=== PATIENT | male | born 1995 | race Two or more races ===

== ENCOUNTER 2024-02-21 02:53 | Emergency (ER) | payer MEDICAID, SELFPAY ==
[2024-02-21] VITALS (7 sets, daily range): BP systolic 109–128; BP diastolic 66–83; PULSE 58–89; RESP 16–23; TEMP 36.5–37.1; O2SAT 96–99; BMI 28.1
--- NOTE | 2024-02-21 03:09 | PD.EDRME ---
Rapid Medical Screening Exam [facility] Arrival date/time: 02/21/24 02:53 29M with history of cholecysitis (managed with ABX), gastritis, and Valley Fever presents to ED with 1 day of burning epigastric pain and N/V. Chief Complaint: Abdominal Pain Vital signs: Vital Signs Temperature 97.7 F 02/21/24 03:07 Pulse Rate 58 L 02/21/24 03:07 Respiratory Rate 19 02/21/24 03:07 Blood Pressure 127/83 02/21/24 03:07 Pulse Oximetry (%) 99 02/21/24 03:07 Oxygen Delivery Method Room Air 02/21/24 03:07
[2024-02-21 03:34] LABS: Basophils # (Auto) 0.1 Thou/mm3 (0.0-0.2); Basophils % (Auto) 1 % (0-2.5); Eosinophils # (Auto) 0.1 Thou/mm3 (0.0-0.5); Eosinophils % (Auto) 1 % (0-10); Hematocrit 44.7 % (41.0-53.0); Hemoglobin 15.4 g/dL (13.5-16.0); Immature Granulocytes % (Auto) 0 % (0-0); Immature Granulocytes Auto 0.02 Thou/mm3 (0.00-0.00); Lymphocytes # (Auto) 2.5 Thou/mm3 (1.0-4.8); Lymphocytes % (Auto) 19 % (10-50); Mean Corpuscular HGB Conc 34.5 g/dl (31.0-37.0); Mean Corpuscular Hemoglobin 28.2 pg (25.0-35.0); Mean Corpuscular Volume 82 fL (80-100); Monocytes # (Auto) 0.6 Thou/mm3 (0.0-0.8); Monocytes % (Auto) 4 % (0-12); Neutrophils # (Auto) 9.7 Thou/mm3 (1.8-7.7); Neutrophils % (Auto) 75 % (37-80); Nucleated Red Blood Cell % 0 /100 WBC (0); Platelet Count 230 Thou/mm3 (140-440); RDW Standard Deviation 38.7 fL (35.1-43.9); Red Blood Count 5.47 Miln/mm3 (4.50-5.90); White Blood Count 12.9 Thou/mm3 (3.8-10.6)
[2024-02-21 04:00] LABS: Alanine Aminotransferase 21 U/L (10-49); Albumin, Serum 4.8 gm/dL (3.5-5.0); Albumin/Globulin Ratio 1.2 (1.2-2.2); Alcohol, Blood Medical < 3.0 mg/dL (0-10.0); Alkaline Phosphatase 133 U/L (46-116); Anion Gap 8 (7-16); Aspartate Amino Transferase 19 U/L (0-34); BUN/Creatinine Ratio 17 Ratio (12-20); Bilirubin,Total 0.5 mg/dL (0.3-1.2); Blood Urea Nitrogen 17 mg/dL (9-23); Calcium 9.5 mg/dL (8.3-10.6); Calcium (Corrected) 9.5 mg/dL (8.5-10.1); Carbon Dioxide 24.1 mMol/L (20.0-31.0); Chloride 103 mMol/L (98-107); Estimated Creatinine Clearance 116.1 mL/min (>60); Glucose 139 mg/dL (74-106); Lipase 36 U/L (12-53); Osmolality,Calculated 273 (275-295); Potassium 3.2 mMol/L (3.4-5.1); Sodium 135 mMol/L (136-145); Total Protein 8.8 gm/dL (5.7-8.2); eGFR > 60 See Note
[2024-02-21] MEDS: ONDANSETRON ODT 4 MG TABRAP PO (04:03)
[2024-02-21] MEDS: FAMOTIDINE 20 MG TABLET 40 MG PO (04:03)
[2024-02-21] MEDS: LIDOCAINE VISCOUS 2% 15 ML UDC PO (04:03)
[2024-02-21] MEDS: MG HYD/AL HYD/SIME (Maalox Reg) SUSP 30 ML UDC PO (04:03)
[2024-02-21 07:28] LABS: Amphetamine/Methamp Scrn,U Negative (Negative); Barbiturate Screen,Urine Negative (Negative); Benzodiazepines Screen,Urine Negative (Negative); Benzoylecgonine Screen, Ur Negative (Negative); Fentanyl Screen,Urine Negative (Negative); Opiate Screen,Urine Negative (Negative); THC Screen,Urine Negative (Negative)
--- NOTE | 2024-02-21 11:18 | XR_ITS ---
Examination: Abdomen sonogram, Limited Date and time of exam: February 21, 2024 1132 hrs. Indications: Onset right upper abdominal pain with vomiting beginning 12 hours ago Technique: Real-time archer scale transabdominal sonographic images of the upper abdomen obtained. Findings: Multiple gallstones, the largest 12 mm Gallbladder wall is thickened 1.6 cm with edema Common bile duct is enlarged 0.7 cm no definite stones Pancreatic head 2.6 cm Liver 17.1 cm smooth contour no focal liver lesions Normal hepatopedal portal venous flow Patent IVC Impression: Acute calculus cholecystitis Consider MRCP follow-up to assess the enlarged common bile duct and exclude common bile duct stones
--- NOTE | 2024-02-21 11:28 | EDNOTE_ITS ---
ED General RME/HPI General Chief complaint: Abdominal Pain Stated complaint: UPPER ABD PAIN RADIATING TO BACK Time Seen by Provider: 02/21/24 06:51 Arrival date/time: 02/21/24 02:53 CC: Epigastric pain with nausea vomiting HPI single episode last night, but has had it for several nights in a row in the past week and 1 episode last month. The patient has a prior history of cholecystitis was managed with antibiotics in June 2023. Patient states between June and last month there were no episodes and then tonight, after throwing up, the pain persisted whereas it would usually spontaneously resolved. Patient is awake alert oriented nontoxic-appearing not in any acute distress denies any chest pain shortness of breath or difficulty breathing. RME / HPI RME / HPI narrative: 02/21/24 02:53 29M with history of cholecysitis (managed with ABX), gastritis, and [place] Fever presents to ED with 1 day of burning epigastric pain and N/V. Related Data Previous Rx's ?Medication ?Instructions ?Recorded omeprazole 40 mg capsule,delayed 40 mg PO QDAY #30 caps 06/16/23 release ondansetron 4 mg disintegrating 4 mg PO Q8H #10 tabs 02/21/24 tablet pantoprazole 40 mg granules 40 mg PO QDAY #30 ea 02/21/24 delayed-release for susp in packet (Protonix) Allergies Allergy/AdvReac Type Severity Reaction Status Date / Time No Known Allergies Allergy Verified 02/21/24 02:55 Review of Systems Review of Systems Narrative Review of Systems: GEN: No fever, no chills, no weight loss EYES: No discharge, no visual changes, no pain HEENT: No ear pain, no congestion, no sore throat PULM: No shortness of breath, no cough, no congestion CV: No chest pain, no dyspnea on exertion, no palpitations GI: No nausea, no vomiting, no diarrhea, + pain, no constipation : No frequency, no urgency, no dysuria MUSC/SKEL: No joint pain, no back pain SKIN: No rash PSYCH: No hallucinations, no depression HEME/LYMPH: No easy bleeding or bruising tendencies NEURO: No weakness, no headache ED Exam Narrative Physical exam: [General: Obese not in any acute distress Head normocephalic HEENT: Within acceptable limits Neck is supple nontender Chest equal chest rise nontender to palpation Respiratory: Clear to auscultation no wheezes crackles or rubs CV: Rate rhythm is regular no murmurs rubs or clicks Abdomen is distended secondary to body habitus soft nontender no masses positive bowel sounds all 4 quadrants Back: No CVA tenderness no spinous process tenderness from cervical spine thoracic and lumbar spine Skin: Intact no petechiae rash induration ulceration or crepitus Extremities: Moving all extremity against resistance cap refill less than 2 seconds neurosensory intact Neuro: Awake alert oriented x3 Glascow coma 15 no focal deficits] Course Quality Measures none Orders Category Date Time Status US gall bladder Stat Exams 02/21/24 11:18 Completed Alcohol, Blood Medical Stat Lab 02/21/24 03:26 Completed CBC Stat Lab 02/21/24 03:26 Completed CMP [Comprehensive Metabolic Panel] Stat Lab 02/21/24 03:26 Completed Drug Screen,Urine Stat Lab 02/21/24 06:17 Completed Lipase Stat Lab 02/21/24 03:26 Completed Famotidine [Pepcid] Med 02/21/24 03:10 Discontinued 40 mg PO X1 ONE Lidocaine 2% Viscous [Xylocaine 2% Viscous] Med 02/21/24 03:10 Discontinued 15 ml PO X1 ONE Morphine Inj Med 02/21/24 03:08 Discontinued 5 mg IM X1 ONE Ondansetron Odt [Zofran Odt] Med 02/21/24 03:08 Discontinued 4 mg PO X1 ONE mg Hyd/Al Hyd/Leonel Susp [Maalox Susp] Med 02/21/24 03:10 Discontinued 30 ml PO X1 ONE Vital Signs Vital signs: Vital Signs Temperature 97.7 F 02/21/24 03:07 Pulse Rate 58 L 02/21/24 03:07 Respiratory Rate 19 02/21/24 03:07 Blood Pressure 127/83 02/21/24 03:07 Pulse Oximetry (%) 99 02/21/24 03:07 Oxygen Delivery Method Room Air 02/21/24 03:07 [facility] Patient data External records reviewed:: [facility] previous records Clinical information provided by:: patient Social determinants that could affect healthcare access:: none Patient has the following chronic illnesses:: Antibiotic manage cholecystitis in June 2023 How is presenting disease/condition affected by chronic disease/condition?: u neffected by Evaluation data The following diagnostics were reviewed and interpreted by me:: lab results and radiology exam(s) Lab and/or radiology exams considered but not ordered:: CBC shows leukocytosis of 12.9 no anemia thrombocytopenia CBC shows a sodium 135 potassium 3.2 chloride 103 bicarb of 24.1 BUN of 17 creatinine 1.0 glucose 139 Alk phos 133 Lipase of 36 UDS is negative EtOH less than 3. Ultrasound the gallbladder shows a calculus cholecystitis recommended an ERCP. Interpretation Summary: The patient has no significant transaminases or T. bili elevation. I think the patient is stable enough to discharge home to follow-up in the morning with ERCP I discussed the patient and he is in agreement with this plan the caveat is if he is a worsening of symptoms profoundly do not wait and come back in during the night. Medications Medications considered but not ordered:: None Medication administrations:: Medication Administration History Discontinued Medications Al Hydrox/Mg Hydrox/Simethicone (Mg Hyd/Al Hyd/Leonel (Maalox Reg) Susp 30 Ml Udc) 30 ml PO X1 ONE Stop: 02/21/24 03:11 Last Admin: 02/21/24 04:03 Dose: 30 ml Documented By: PUNEET Famotidine (Famotidine 20 Mg Tablet) 40 mg PO X1 ONE Stop: 02/21/24 03:11 Last Admin: 02/21/24 04:03 Dose: 40 mg Documented By: PUNEET Lidocaine HCl (Lidocaine Viscous 2% 15 Ml Udc) 15 ml PO X1 ONE Stop: 02/21/24 03:11 Last Admin: 02/21/24 04:03 Dose: 15 ml Documented By: PUNEET Morphine Sulfate (Morphine Sulf Inj 10 Mg/Ml Vial) 5 mg IM X1 ONE Stop: 02/21/24 03:09 Last Admin: 02/21/24 04:06 Dose: Not Given Documented By: PUNEET Non-Admin Reason: Discontinued Ondansetron HCl (Ondansetron Odt 4 Mg Tabrap) 4 mg PO X1 ONE; Protocol Stop: 02/21/24 03:09 Last Admin: 02/21/24 04:03 Dose: 4 mg Documented By: PUNEET None Consultations Consultation(s) initiated? (list below): No Diagnosis Differential Diagnosis ED Complaint MDM: Cholecystitis cholelithiasis choledocholithiasis Most likely diagnosis given after review of the tests above:: Abdominal pain Admission Indicated Admission indicated?: not indicated Explain why admission is indicated or not indicated:: Stable for close outpatient follow-up Admission Request Was there a request for admission?: No Disposition Plan Disposition Plan: Discharge Discharge Attestation Discharge Attestation: The patient and all family members were given an opportunity to ask questions and understood the discharge instructions. Discharge instructions specifically effects, indications for sooner follow up or return to the emergency department, and the expected course of current diagnosis. Patient condition: Stable Medical Decision Making Differential Diagnosis Differential Diagnosis: Cholecystitis cholelithiasis choledocholithiasis Lab Data 02/21/24 03:26 02/21/24 03:26 Labs: Lab Results 02/21/24 02/21/24 Range/Units 03:26 06:17 WBC 12.9 H (3.8-10.6) Thou/mm3 RBC 5.47 (4.50-5.90) Miln/mm3 Hgb 15.4 (13.5-16.0) g/dL Hct 44.7 (41.0-53.0) % MCV 82 (80-100) fL MCH 28.2 (25.0-35.0) pg MCHC 34.5 (31.0-37.0) g/dl RDW Std Deviation 38.7 (35.1-43.9) fL Plt Count 230 (140-440) Thou/mm3 Neut % (Auto) 75 (37-80) % Lymph % (Auto) 19 (10-50) % [place] % (Auto) 4 (0-12) % Eos % (Auto) 1 (0-10) % Baso % (Auto) 1 (0-2.5) % Neut # (Auto) 9.7 H (1.8-7.7) Thou/mm3 Lymph # (Auto) 2.5 (1.0-4.8) Thou/mm3 [place] # (Auto) 0.6 (0.0-0.8) Thou/mm3 Eos # (Auto) 0.1 (0.0-0.5) Thou/mm3 Baso # (Auto) 0.1 (0.0-0.2) Thou/mm3 Immature Gran # (Auto) 0.02 H (0.00-0.00) Thou/mm3 Absolute Nucleated RBC 0.00 (0.00-0.00) Thou/mm3 Immature Gran % 0 (0-0) % Nucleated RBC % 0 (0) /100 WBC Sodium 135 L (136-145) mMol/L Potassium 3.2 L (3.4-5.1) mMol/L Chloride 103 (98-107) mMol/L Carbon Dioxide 24.1 (20.0-31.0) mMol/L Anion Gap 8 (7-16) BUN 17 (9-23) mg/dL Creatinine 1.0 (0.6-1.3) mg/dL Estim Creat Clear Calc 116.1 (>60) mL/min eGFR > 60 (60 - ) See Note BUN/Creatinine Ratio 17 (12-20) Ratio Glucose 139 H (74-106) mg/dL Calculated Osmolality 273 L (275-295) Calcium 9.5 (8.3-10.6) mg/dL Corrected Calcium 9.5 (8.5-10.1) mg/dL Total Bilirubin 0.5 (0.3-1.2) mg/dL AST 19 (0-34) U/L ALT 21 (10-49) U/L Alkaline Phosphatase 133 H (46-116) U/L Total Protein 8.8 H (5.7-8.2) gm/dL Albumin 4.8 (3.5-5.0) gm/dL Globulin 4.0 H (2.3-3.5) gm/dL Albumin/Globulin Ratio 1.2 (1.2-2.2) Lipase 36 (12-53) U/L Urine Opiates Screen Negative (Negative) Urine Fentanyl Screen Negative (Negative) Ur Barbiturates Screen Negative (Negative) U Amphetamin/Meth Scrn Negative (Negative) U Benzodiazepines Scrn Negative (Negative) U Cocaine Metab Screen Negative (Negative) U Marijuana (THC) Screen Negative (Negative) Ethyl Alcohol < 3.0 (0-10.0) mg/dL Discharge Plan Plan Patient Disposition: HOME (Self Care) Patient condition on transfer: Stable Prescriptions/Referrals Prescriptions/Med Rec: New pantoprazole [Protonix] [address] for susp in packet 40 mg PO QDAY Qty: 30 0RF ondansetron 4 mg tablet,disintegrating 4 mg PO Q8H Qty: 10 0RF No Action omeprazole 40 mg capsule,delayed release(DR/EC) 40 mg PO QDAY Qty: 30 1RF Referrals: No Primary/Family,Physician [Primary Care Provider] - In 1 week Problem List Clinical Impression: Epigastric pain Patient/Caregiver Discharge Instructions Education Materials: ED Epigastric Pain (Uncertain Cause) Additional Instructions: Return tomorrow at 10:30 AM as you need an MRCP. Print Language: Croatian Stand Alone Forms: Nicole Award Info., Work/School Release, Patient Portal Info Letter PA/SUGAR HOUSE SUPERVISOR Supervising Physician PA/[employer]SE SUPERVISOR Supervising Physician: Robert Luna ENP
== END 2024-02-21 13:18 | disposition home or self-care (01) ==
PROVIDERS: Physician Assistant; Emergency Provider Emergency Medicine
DX: K80.10 Calculus of gallbladder with chronic cholecystitis without obstruction (principal)
CPT/HCPCS: 36415; 76705; 80053; 80307; 80320; 83690; 85025; 99284; J3490; Q0162; A9270; G0480

== ENCOUNTER 2024-02-22 10:32 | Emergency (ER) | payer MEDICAID, SELFPAY ==
--- NOTE | 2024-02-22 | XR_ITS ---
MRI abdomen, without contrast. MRCP Date and time of exam: February 22, 2024 1327 hrs. Indications: Epigastric pain beginning 8 months ago worse the last 2 days, abdomen sonogram 02/21/2024 multiple gallstones gallbladder wall thickened Technique: Multiple axial and coronal images of the abdomen have been obtained with the Siemens 1.5T MRI scanner. Images obtained included T1 weighted transverse images, T2-weighted transverse images, T2-weighted transverse images fat-suppressed, T2 weighted haste fat suppressed transverse images, T1 weighted images, in and out of phase images, T2-weighted coronal images, breath hold, T2 weighted haze coronal images as well as T2 weighted coronal thick slab images, MRCP. Findings: Mild hepatomegaly 17 cm The gallbladder is contracted with gallstones, marked gallbladder wall edema and thickening Normal common hepatic common bile duct No pancreatic edema Spleen not enlarged No hydronephrosis No ascites Aorta normal size Impression: Acute calculus cholecystitis, the gallbladder is contracted not amenable to percutaneous cholecystostomy Normal common hepatic common bile duct
[2024-02-22 10:32] VITALS: BMI 28.1
[2024-02-22 10:36] VITALS: BP 132/73; PULSE 81; RESP 19; TEMP 36.9; O2SAT 98
--- NOTE | 2024-02-22 10:46 | PD.EDRME ---
Rapid Medical Screening Exam E Arrival date/time: 02/22/24 10:32 29-year-old male presents to the emergency department complaint of abdominal pain patient was instructed to return today for MRCP Chief Complaint: Abdominal Pain Vital signs: Vital Signs Temperature 98.4 F 02/22/24 10:36 Pulse Rate 81 02/22/24 10:36 Respiratory Rate 19 02/22/24 10:36 Blood Pressure 132/73 H 02/22/24 10:36 Pulse Oximetry (%) 98 02/22/24 10:36 Oxygen Delivery Method Room Air 02/22/24 10:36
[2024-02-22 11:08] LABS: Basophils % (Auto) 1 % (0-2.5); Eosinophils # (Auto) 0.2 Thou/mm3 (0.0-0.5); Eosinophils % (Auto) 3 % (0-10); Hematocrit 44.7 % (41.0-53.0); Hemoglobin 15.3 g/dL (13.5-16.0); Immature Granulocytes % (Auto) 0 % (0-0); Immature Granulocytes Auto 0.02 Thou/mm3 (0.00-0.00); Lymphocytes % (Auto) 28 % (10-50); Mean Corpuscular HGB Conc 34.2 g/dl (31.0-37.0); Mean Corpuscular Hemoglobin 28.7 pg (25.0-35.0); Mean Corpuscular Volume 84 fL (80-100); Monocytes # (Auto) 0.4 Thou/mm3 (0.0-0.8); Monocytes % (Auto) 5 % (0-12); Neutrophils # (Auto) 4.6 Thou/mm3 (1.8-7.7); Neutrophils % (Auto) 63 % (37-80); Nucleated Red Blood Cell % 0 /100 WBC (0); Platelet Count 221 Thou/mm3 (140-440); RDW Standard Deviation 41.3 fL (35.1-43.9); Red Blood Count 5.33 Miln/mm3 (4.50-5.90); White Blood Count 7.3 Thou/mm3 (3.8-10.6)
[2024-02-22 11:29] LABS: Alanine Aminotransferase 19 U/L (10-49); Albumin, Serum 4.5 gm/dL (3.5-5.0); Albumin/Globulin Ratio 1.1 (1.2-2.2); Alkaline Phosphatase 113 U/L (46-116); Anion Gap 4 (7-16); Aspartate Amino Transferase 14 U/L (0-34); BUN/Creatinine Ratio 12 Ratio (12-20); Bilirubin,Total 0.9 mg/dL (0.3-1.2); Blood Urea Nitrogen 11 mg/dL (9-23); Calcium 9.8 mg/dL (8.3-10.6); Calcium (Corrected) 9.8 mg/dL (8.5-10.1); Carbon Dioxide 27.8 mMol/L (20.0-31.0); Chloride 103 mMol/L (98-107); Creatinine (Component) 0.9 mg/dL (0.6-1.3); Glucose 120 mg/dL (74-106); Lipase 36 U/L (12-53); Osmolality,Calculated 270 (275-295); Potassium 3.6 mMol/L (3.4-5.1); Sodium 135 mMol/L (136-145); Total Protein 8.5 gm/dL (5.7-8.2); eGFR > 60 See Note
[2024-02-22 13:18] VITALS: BP 115/76; PULSE 64; RESP 16; TEMP 36.6; O2SAT 99
--- NOTE | 2024-02-22 15:20 | PD.EDADULT ---
ED General RME/HPI General Chief complaint: Abdominal Pain Stated complaint: upper abd. pain need MRCP told to come back Time Seen by Provider: 02/22/24 15:12 Arrival date/time: 02/22/24 10:32 CC: Right upper quadrant pain HPI patient was followed his instructions to return for an MRCP was seen by me yesterday for right upper quadrant epigastric abdominal pain. Patient had a mild white count yesterday today the patient's labs are unremarkable, patient has no pain. RME / HPI RME / HPI narrative: 02/22/24 10:32 29-year-old male presents to the emergency department complaint of abdominal pain patient was instructed to return today for MRCP Related Data Previous Rx's ?Medication ?Instructions ?Recorded omeprazole 40 mg capsule,delayed 40 mg PO QDAY #30 caps 06/16/23 release ondansetron 4 mg disintegrating 4 mg PO Q8H #10 tabs 02/21/24 tablet pantoprazole 40 mg granules 40 mg PO QDAY #30 ea 02/21/24 delayed-release for susp in packet (Protonix) Allergies Allergy/AdvReac Type Severity Reaction Status Date / Time No Known Allergies Allergy Verified 02/22/24 10:35 Review of Systems Review of Systems Narrative Review of Systems: GEN: No fever, no chills, no weight loss EYES: No discharge, no visual changes, no pain HEENT: No ear pain, no congestion, no sore throat PULM: No shortness of breath, no cough, no congestion CV: No chest pain, no dyspnea on exertion, no palpitations GI: No nausea, no vomiting, no diarrhea, no pain, no constipation : No frequency, no urgency, no dysuria MUSC/SKEL: No joint pain, no back pain SKIN: No rash PSYCH: No hallucinations, no depression HEME/LYMPH: No easy bleeding or bruising tendencies NEURO: No weakness, no headache Past Medical History Past Medical History NEUROLOGIC: Negative Seizures CARDIAC: Negative Cardiac Disorders or Congestive Heart Failure RESPIRATORY: Positive Pneumonia (Recent diagnosis from PCP on Abx); Negative Respiratory Disorders, Chronic Obstructive Pulmonary Disease (COPD) or Asthma GENITOURINARY: Negative Renal Disease MUSCULOSKELETAL: Negative Musculoskeletal Disorders ENDOCRINE: Negative Diabetes Mellitus Type 1 or Diabetes Mellitus Type 2 HEMATOLOGIC: Negative Sickle Cell Disease OTHER HISTORY: Negative Blood Transfusions, Blood Transfusion Reaction or Anesthesia Reactions Social History SMOKING STATUS: Never smoker SUBSTANCE USE: does not use ED Exam Narrative Physical exam: [General: Not in any acute distress Head normocephalic HEENT: Within acceptable limits Neck is supple nontender Chest equal chest rise nontender to palpation Respiratory: Clear to auscultation no wheezes crackles or rubs CV: Rate rhythm is regular no murmurs rubs or clicks Abdomen is soft nontender no masses positive bowel sounds all 4 quadrants Back: No CVA tenderness no spinous process tenderness from cervical spine thoracic and lumbar spine Skin: Intact no petechiae rash induration ulceration or crepitus Extremities: Moving all extremity against resistance cap refill less than 2 seconds neurosensory intact Neuro: Awake alert oriented x3 Glascow coma 15 no focal deficits] Course Quality Measures none Orders Category Date Time Status MRI Screening NOW Care 02/22/24 10:46 Active MR MRCP Stat Exams 02/22/24 Completed CBC Stat Lab 02/22/24 10:58 Completed Comprehensive Metabolic Panel Stat Lab 02/22/24 10:58 Completed Lipase Stat Lab 02/22/24 10:58 Completed Vital Signs Vital signs: Vital Signs Temperature 98.4 F 02/22/24 10:36 Pulse Rate 81 02/22/24 10:36 Respiratory Rate 19 02/22/24 10:36 Blood Pressure 132/73 H 02/22/24 10:36 Pulse Oximetry (%) 98 02/22/24 10:36 Oxygen Delivery Method Room Air 02/22/24 10:36 [facility] Patient data External records reviewed:: [facility] previous records Clinical information provided by:: patient Social determinants that could affect healthcare access:: none Patient has the following chronic illnesses:: Gallstones How is presenting disease/condition affected by chronic disease/condition?: exacerbated by Evaluation data The following diagnostics were reviewed and interpreted by me:: lab results and radiology exam(s) Lab and/or radiology exams considered but not ordered:: CBC shows no acute leukocytosis anemia thrombocytopenia CMP shows no acute electrolyte imbalances renal impairment transaminitis or T. bili elevation. MRCP shows the patient has no choledocholithiasis but cholecystitis classified as acute as interpreted by the radiologist Interpretation Summary: The patient is afebrile nontoxic-appearing not in any acute distress with no leukocytosis no transaminitis or T. bili elevation. The patient is exam is benign as there is no pain. This time the patient to follow-up outpatient with [facility] for referral to surgery. Medications Medications considered but not ordered:: None Medication administrations:: None Consultations Consultation(s) initiated? (list below): No Diagnosis Differential Diagnosis ED Complaint MDM: Cholecystitis choledocholithiasis cholelithiasis Most likely diagnosis given after review of the tests above:: Cholecystitis Admission Indicated Admission indicated?: not indicated Explain why admission is indicated or not indicated:: Stable for outpatient follow-up Admission Request Was there a request for admission?: No Disposition Plan Disposition Plan: Discharge Discharge Attestation Discharge Attestation: The patient and all family members were given an opportunity to ask questions and understood the discharge instructions. Discharge instructions specifically effects, indications for sooner follow up or return to the emergency department, and the expected course of current diagnosis. Patient condition: Stable Medical Decision Making Differential Diagnosis Differential Diagnosis: Cholecystitis choledocholithiasis cholelithiasis Lab Data 02/22/24 10:58 02/22/24 10:58 Labs: Lab Results 02/22/24 Range/Units 10:58 WBC 7.3 D (3.8-10.6) Thou/mm3 RBC 5.33 (4.50-5.90) Miln/mm3 Hgb 15.3 (13.5-16.0) g/dL Hct 44.7 (41.0-53.0) % MCV 84 (80-100) fL MCH 28.7 (25.0-35.0) pg MCHC 34.2 (31.0-37.0) g/dl RDW Std Deviation 41.3 (35.1-43.9) fL Plt Count 221 (140-440) Thou/mm3 Neut % (Auto) 63 (37-80) % Lymph % (Auto) 28 (10-50) % [place] % (Auto) 5 (0-12) % Eos % (Auto) 3 (0-10) % Baso % (Auto) 1 (0-2.5) % Neut # (Auto) 4.6 (1.8-7.7) Thou/mm3 Lymph # (Auto) 2.0 (1.0-4.8) Thou/mm3 [place] # (Auto) 0.4 (0.0-0.8) Thou/mm3 Eos # (Auto) 0.2 (0.0-0.5) Thou/mm3 Baso # (Auto) 0.0 (0.0-0.2) Thou/mm3 Immature Gran # (Auto) 0.02 H (0.00-0.00) Thou/mm3 Absolute Nucleated RBC 0.00 (0.00-0.00) Thou/mm3 Immature Gran % 0 (0-0) % Nucleated RBC % 0 (0) /100 WBC Sodium 135 L (136-145) mMol/L Potassium 3.6 (3.4-5.1) mMol/L Chloride 103 (98-107) mMol/L Carbon Dioxide 27.8 (20.0-31.0) mMol/L Anion Gap 4 L (7-16) BUN 11 (9-23) mg/dL Creatinine 0.9 (0.6-1.3) mg/dL Estim Creat Clear Calc 129.0 (>60) mL/min eGFR > 60 (60 - ) See Note BUN/Creatinine Ratio 12 (12-20) Ratio Glucose 120 H (74-106) mg/dL Calculated Osmolality 270 L (275-295) Calcium 9.8 (8.3-10.6) mg/dL Corrected Calcium 9.8 (8.5-10.1) mg/dL Total Bilirubin 0.9 (0.3-1.2) mg/dL AST 14 (0-34) U/L ALT 19 (10-49) U/L Alkaline Phosphatase 113 D (46-116) U/L Total Protein 8.5 H (5.7-8.2) gm/dL Albumin 4.5 (3.5-5.0) gm/dL Globulin 4.0 H (2.3-3.5) gm/dL Albumin/Globulin Ratio 1.1 L (1.2-2.2) Lipase 36 (12-53) U/L Discharge Plan Plan Patient Disposition: HOME (Self Care) Patient condition on transfer: Stable Prescriptions/Referrals Prescriptions/Med Rec: No Action omeprazole 40 mg capsule,delayed release(DR/EC) 40 mg PO QDAY Qty: 30 1RF pantoprazole [Protonix] [address] for susp in packet 40 mg PO QDAY Qty: 30 0RF ondansetron 4 mg tablet,disintegrating 4 mg PO Q8H Qty: 10 0RF Referrals: No Primary/Family,Physician [Primary Care Provider] - In 1 week Anthony Ballesteros MD [Physician] - In 1 week Tati Salvador MD [Physician] - In 1 week Problem List Clinical Impression: Cholecystitis Patient/Caregiver Discharge Instructions Education Materials: ED Cholecystitis, Presumed, ED Diet, [place] (Adult) Additional Instructions: Stick to a bland diet, take Tylenol for pain if there is a worsening of symptoms return to the emergency room for reevaluation otherwise follow-up with the PCP and get a referral to outpatient for surgery. Print Language: [place]ine[place] Stand Alone Forms: Nicole Award Info., Patient Portal Info Letter PA/CROP OR LIVESTOCK TENANT FARMER Supervising Physician PA/CROP OR LIVESTOCK TENANT FARMER Supervising Physician: Robert Luna ENP
== END 2024-02-22 15:34 | disposition home or self-care (01) ==
PROVIDERS: Nurse Practitioner Primary Care; Emergency Provider Emergency Medicine
DX: K80.00 Calculus of gallbladder with acute cholecystitis without obstruction (principal)
CPT/HCPCS: 36415; 80053; 83690; 85025; 99284; S8037; 74181